=== PATIENT | female | born 1970 | race Caucasian/White ===

== ENCOUNTER 2024-08-06 02:34 | Inpatient (IN) | payer MEDICAID ==
[~2024-08-06] VITALS: Ht 172.7 cm; Wt 67.6 kg
[~2024-08-06 02:34] MED LIST: AMOX1TAB15 MT; CIPR500S3 PO; METH-819 GT
[2024-08-06 04:01] LABS: BASOPHILS % 0.8 % (0.0-2.0); DIFFERENTIAL COMMENT 0; EOSINOPHILS % 3.3 % (0.0-5.0); HEMATOCRIT. 39.3 % (36.0-48.0); HEMOGLOBIN. 13.2 g/dL (12.0-16.0); LYMPHOCYTES % 38.9 % (20.0-50.0); MEAN CORPUSCULAR HEMOGLOBIN 34.6 pg (28.0-32.0); MEAN CORPUSCULAR HGB CONC 33.7 g/dL (31.0-37.0); MEAN CORPUSCULAR VOLUME 102.7 fL (81.0-99.0); MEAN PLATELET VOLUME 7.6 fl (7.4-10.4); MONOCYTES % 9.6 % (2.0-8.0); NEUTROPHILS % 47.4 % (40.0-76.0); PLATELET 118 x1000/uL (130-400); RED BLOOD CELL COUNT 3.83 mill/uL (4.2-5.4); RED CELL DISTRIBUTION WIDTH 15.7 % (11.6-14.6); WHITE BLOOD COUNT 6.4 x1000/uL (4.5-11.0)
[2024-08-06 04:12] LABS: CHLORIDE 104 mEq/L (98-107); POTASSIUM 4.4 mEq/L (3.5-5.1); SODIUM 141 mEq/L (136-145)
[2024-08-06 04:13] LABS: CARBON DIOXIDE 33 mEq/L (21-32)
[2024-08-06 04:14] LABS: CALCIUM 8.3 mg/dL (8.7-10.4)
[2024-08-06 04:17] LABS: INR 1.2; PROTHROMBIN TIME 12.6 sec (9.6-11.0)
[2024-08-06 04:18] LABS: CREATININE 0.6 mg/dL (0.6-1.0); GLUCOSE 104 mg/dL (70-105)
[2024-08-06 04:20] LABS: LACTIC ACID 3.2 mmol/L (0.4-2.0)
[2024-08-06 04:31] LABS: UREA NITROGEN BLOOD < 5 mg/dL (9-23)
[2024-08-06 08:00] VITALS: BP 133/79; PULSE 95; RESP 18; TEMP 36.5; O2SAT 99
[2024-08-06] MEDS ORDERED: ACETAMINOPHEN 325MG TABLET PO PRN (09:30)
[2024-08-06] MEDS ORDERED: CLONIDINE 0.1MG TABLET PO PRN (09:30)
[2024-08-06] MEDS ORDERED: IPRATROPIUM/ALBUTEROL 0.5-3(2.5)MG/3ML NEB HHN PRN (09:30)
[2024-08-06] MEDS ORDERED: DOCUSATE SODIUM 100MG CAPSULE PO PRN (09:30)
[2024-08-06] MEDS ORDERED: ONDANSETRON HCL 4MG/2ML INJ IV PRN (09:30)
[2024-08-06] MEDS: HYDROCODONE/ACETAMINOPHEN 5/325MG TABLET PO PRN (09:55)
[2024-08-06 09:59] LABS: CREATINE KINASE 77 IU/L (34-145)
[2024-08-06] MEDS ORDERED: NON FORMULARY MED XX SCH (10:00)
[2024-08-06] MEDS: FAMOTIDINE 20MG/2ML VIAL IV SCH ×2 (10:21→21:28)
[2024-08-06] MEDS: PIPERACILLIN/TAZO 3.375G/50ML 50 ML IV SCH (10:21)
[2024-08-06] MEDS ORDERED: METHADONE HCL 10MG TABLET PO SCH (10:30)
[2024-08-06] MEDS ORDERED: METHADONE HCL 5MG TABLET PO SCH (10:30)
[2024-08-06] MEDS: VANCOMYCIN 1.5GM/250ML IV NR (11:57)
[2024-08-06] MEDS: METHADONE HCL 5MG TABLET PO SCH (13:40)
[2024-08-06] MEDS: METHADONE HCL 10MG TABLET PO SCH (13:41)
[2024-08-06] MEDS: HYDRALAZINE HCL 25MG TABLET PO SCH (13:48)
[2024-08-06 16:00] VITALS: BP 110/71; PULSE 89; RESP 16; TEMP 37.1; O2SAT 97
[2024-08-06 20:56] VITALS: BP 124/74; PULSE 77; RESP 18; TEMP 36.6; O2SAT 97
[2024-08-06] MEDS: VANCOMYCIN 1GM/200ML PMX (BAXTER) IV SCH (21:27)
[2024-08-07] VITALS: BP 139/77; PULSE 73; RESP 18; TEMP 36.2; O2SAT 99
[2024-08-07 04:00] VITALS: BP 151/47; PULSE 86; RESP 18; TEMP 36.2; O2SAT 97
[2024-08-07 10:15] LABS: BASOPHILS % 0.7 % (0.0-2.0); DIFFERENTIAL COMMENT 0; EOSINOPHILS % 2.4 % (0.0-5.0); HEMATOCRIT. 39.4 % (36.0-48.0); HEMOGLOBIN. 12.8 g/dL (12.0-16.0); LYMPHOCYTES % 17.9 % (20.0-50.0); MEAN CORPUSCULAR HEMOGLOBIN 33.7 pg (28.0-32.0); MEAN CORPUSCULAR HGB CONC 32.5 g/dL (31.0-37.0); MEAN CORPUSCULAR VOLUME 103.9 fL (81.0-99.0); MEAN PLATELET VOLUME 7.9 fl (7.4-10.4); MONOCYTES % 9.6 % (2.0-8.0); NEUTROPHILS % 69.4 % (40.0-76.0); PLATELET 80 x1000/uL (130-400); RED BLOOD CELL COUNT 3.79 mill/uL (4.2-5.4); RED CELL DISTRIBUTION WIDTH 16.1 % (11.6-14.6); WHITE BLOOD COUNT 4.8 x1000/uL (4.5-11.0)
[2024-08-07 10:22] LABS: CARBON DIOXIDE 27 mEq/L (21-32); CHLORIDE 105 mEq/L (98-107); SODIUM 138 mEq/L (136-145)
[2024-08-07 10:23] LABS: CALCIUM 8.4 mg/dL (8.7-10.4)
[2024-08-07 10:27] LABS: CREATININE 0.5 mg/dL (0.6-1.0); GLUCOSE 126 mg/dL (70-105); UREA NITROGEN BLOOD 7 mg/dL (9-23)
[2024-08-07 10:29] LABS: ALANINE AMINOTRANSFERASE 36 IU/L (10-49); ALBUMIN 2.5 g/dL (3.2-4.8); ASPARTATE AMINOTRANSFERASE 86 IU/L (<34)
[2024-08-07 10:30] LABS: BILIRUBIN DIRECT 1.2 mg/dL (<=3.0); BILIRUBIN TOTAL 2.8 mg/dL (0.1-1.0); PHOSPHORUS 3.3 mg/dL (2.5-4.9); PROTEIN TOTAL 6.7 g/dL (6.0-8.3)
[2024-08-07] MEDS: AMLODIPINE 5MG TABLET PO SCH (10:44)
[2024-08-07 11:29] LABS: INR 1.8; PROTHROMBIN TIME 18.6 sec (9.6-11.0)
[2024-08-07 12:00] VITALS: BP 126/78; PULSE 92; RESP 18; TEMP 36.7; O2SAT 97
[2024-08-07 16:00] VITALS: BP 130/57; PULSE 92; RESP 18; TEMP 37.1; O2SAT 98
[2024-08-07] MEDS: MORPHINE SULFATE 2 MG/ML INJ (NOT FOR IM USE) IV PRN (17:07)
[2024-08-07 20:00] VITALS: BP 131/72; PULSE 82; RESP 19; TEMP 36.6; O2SAT 97
[2024-08-08] VITALS: BP 118/66; PULSE 92; RESP 18; TEMP 36.5; O2SAT 99
[2024-08-08 07:34] LABS: CARBON DIOXIDE 30 mEq/L (21-32); CHLORIDE 107 mEq/L (98-107); POTASSIUM 4.2 mEq/L (3.5-5.1); SODIUM 141 mEq/L (136-145)
[2024-08-08 07:35] LABS: CALCIUM 8.2 mg/dL (8.7-10.4)
[2024-08-08 07:40] LABS: CREATININE 0.5 mg/dL (0.6-1.0); GLUCOSE 90 mg/dL (70-105); UREA NITROGEN BLOOD 8 mg/dL (9-23)
[2024-08-08 08:00] VITALS: BP 106/65; PULSE 89; RESP 20; TEMP 36.7; O2SAT 96
[2024-08-08 12:00] VITALS: BP 119/70; PULSE 93; RESP 18; TEMP 36.8; O2SAT 96
[2024-08-08 16:00] VITALS: BP 153/98; PULSE 72; RESP 19; TEMP 36.4; O2SAT 98
[2024-08-08 16:25] VITALS: BP 122/70; PULSE 62; RESP 19; TEMP 36.1
[2024-08-08] MEDS: VANCOMYCIN 750MG PREMIX 150 ML IV SCH (17:28)
[2024-08-08 20:00] VITALS: BP 114/72; PULSE 95; RESP 18; TEMP 36.7; O2SAT 99
[2024-08-09] VITALS: BP 107/68; PULSE 96; RESP 19; TEMP 36.4; O2SAT 96
[2024-08-09 04:00] VITALS: BP 108/68; PULSE 84; RESP 16; TEMP 36.3; O2SAT 97
[2024-08-09 06:59] LABS: DIFFERENTIAL COMMENT 0; EOSINOPHILS % 4.3 % (0.0-5.0); HEMATOCRIT. 37.6 % (36.0-48.0); HEMOGLOBIN. 12.7 g/dL (12.0-16.0); MEAN CORPUSCULAR HEMOGLOBIN 35.2 pg (28.0-32.0); MEAN CORPUSCULAR HGB CONC 33.7 g/dL (31.0-37.0); MEAN CORPUSCULAR VOLUME 104.2 fL (81.0-99.0); MEAN PLATELET VOLUME 8.2 fl (7.4-10.4); NEUTROPHILS % 55.7 % (40.0-76.0); PLATELET 84 x1000/uL (130-400); RED CELL DISTRIBUTION WIDTH 15.6 % (11.6-14.6); WHITE BLOOD COUNT 4.9 x1000/uL (4.5-11.0)
[2024-08-09 07:06] LABS: CHLORIDE 107 mEq/L (98-107); POTASSIUM 3.8 mEq/L (3.5-5.1); SODIUM 141 mEq/L (136-145)
[2024-08-09 07:09] LABS: CARBON DIOXIDE 29 mEq/L (21-32); INR 1.2; PROTHROMBIN TIME 12.4 sec (9.6-11.0)
[2024-08-09 07:10] LABS: CALCIUM 8.5 mg/dL (8.7-10.4)
[2024-08-09 07:15] LABS: CREATININE 0.5 mg/dL (0.6-1.0); GLUCOSE 107 mg/dL (70-105); UREA NITROGEN BLOOD 10 mg/dL (9-23)
[2024-08-09 07:16] LABS: ALBUMIN 2.6 g/dL (3.2-4.8)
[2024-08-09 07:17] LABS: ALANINE AMINOTRANSFERASE 40 IU/L (10-49); ASPARTATE AMINOTRANSFERASE 88 IU/L (<34); BILIRUBIN DIRECT 0.9 mg/dL (<=3.0); BILIRUBIN TOTAL 1.7 mg/dL (0.1-1.0); PHOSPHORUS 3.7 mg/dL (2.5-4.9); PROTEIN TOTAL 6.5 g/dL (6.0-8.3)
[2024-08-09 08:00] VITALS: BP 122/72; PULSE 91; RESP 20; TEMP 37.3; O2SAT 97
[2024-08-09 12:00] VITALS: BP 119/68; PULSE 96; RESP 16; TEMP 36.9; O2SAT 98
[2024-08-09 13:31] LABS: *AMPHETAMINES SCREEN URINE NEGATIVE (NEGATIVE); *BARBITURATES SCREEN URINE NEGATIVE (NEGATIVE); *BENZODIAZEPINES SCREEN URINE NEGATIVE (NEGATIVE); *COCAINE SCREEN URINE NEGATIVE (NEGATIVE)
[2024-08-09 13:32] LABS: CANNABINOID URINE SCREEN NEGATIVE (NEGATIVE); ECSTASY MDMA SCREEN URINE NEGATIVE (NEGATIVE); METHADONE URINE SCREEN Pos (NEGATIVE); OPIATES URINE SCREEN PRESUMPTIVE POSITIVE (NEGATIVE); PHENCYCLIDINE URINE SCREEN NEGATIVE (NEGATIVE)
[2024-08-09 16:00] VITALS: BP 106/60; PULSE 89; RESP 20; TEMP 36.9; O2SAT 98
[2024-08-09 20:00] VITALS: BP 115/75; PULSE 89; RESP 16; TEMP 36.6
[2024-08-10] VITALS: BP 120/70; RESP 16; TEMP 36.6
[2024-08-10 04:00] VITALS: BP 128/59; PULSE 100; RESP 18; TEMP 36.6
[2024-08-10] MEDS: ACETAMINOPHEN 325MG TABLET PO PRN (05:50)
[2024-08-10 08:00] VITALS: BP 118/65; PULSE 104; RESP 22; TEMP 36.7; O2SAT 95
[2024-08-10] MEDS ORDERED: NALOXONE HCL 0.4MG/ML VIAL IV PRN (10:30)
[2024-08-10 12:00] VITALS: BP 118/74; PULSE 102; RESP 20; TEMP 36.7; O2SAT 98
[2024-08-10] MEDS ORDERED: MORPHINE SULFATE 2 MG/ML INJ (NOT FOR IM USE) IV PRN (13:00)
[2024-08-10] MEDS: AMPICILLIN SOD/SULBACTAM NA 3 G in SODIUM CHLORIDE 0.9% 100 ML IV SCH (13:16)
[2024-08-10 16:00] VITALS: BP 111/59; PULSE 100; RESP 20; TEMP 36.8; O2SAT 97
[2024-08-10 20:00] VITALS: BP 121/70; PULSE 80; RESP 17; TEMP 36.6; O2SAT 100
[2024-08-11 04:00] VITALS: BP 110/67; RESP 15; TEMP 36.7; O2SAT 100
[2024-08-11 07:05] LABS: CALCIUM 8.4 mg/dL (8.7-10.4); CHLORIDE 104 mEq/L (98-107); POTASSIUM 4.1 mEq/L (3.5-5.1); SODIUM 139 mEq/L (136-145)
[2024-08-11 07:06] LABS: CARBON DIOXIDE 29 mEq/L (21-32)
[2024-08-11 07:11] LABS: CREATININE 0.6 mg/dL (0.6-1.0); GLUCOSE 79 mg/dL (70-105); UREA NITROGEN BLOOD 11 mg/dL (9-23)
[2024-08-11 07:49] LABS: DIFFERENTIAL COMMENT 0; EOSINOPHILS % 3.8 % (0.0-5.0); HEMATOCRIT. 35.9 % (36.0-48.0); LYMPHOCYTES % 31.8 % (20.0-50.0); MEAN CORPUSCULAR HEMOGLOBIN 34.2 pg (28.0-32.0); MEAN CORPUSCULAR HGB CONC 33.4 g/dL (31.0-37.0); MEAN CORPUSCULAR VOLUME 102.4 fL (81.0-99.0); MEAN PLATELET VOLUME 8.8 fl (7.4-10.4); MONOCYTES % 13.5 % (2.0-8.0); NEUTROPHILS % 49.9 % (40.0-76.0); PLATELET 86 x1000/uL (130-400); RED BLOOD CELL COUNT 3.51 mill/uL (4.2-5.4); RED CELL DISTRIBUTION WIDTH 15.3 % (11.6-14.6); WHITE BLOOD COUNT 4.7 x1000/uL (4.5-11.0)
[2024-08-11 08:00] VITALS: BP 107/60; PULSE 94; RESP 19; TEMP 36.8; O2SAT 97
[2024-08-11] MEDS ORDERED: AMOX1TAB16 MT (09:46)
[2024-08-11] MEDS ORDERED: SULF1TAB48 MT (09:46)
[2024-08-11 11:08] VITALS: BP 107/60; PULSE 94; TEMP 98.2; O2SAT 97
[2024-08-11 12:00] VITALS: BP 131/72; PULSE 97; RESP 19; TEMP 36.8; O2SAT 100
[2024-08-11 16:00] VITALS: BP 107/64; PULSE 89; RESP 16; TEMP 36.9; O2SAT 98
[2024-08-11 17:53] VITALS: BP 107/64; PULSE 89; RESP 16
== END 2024-08-11 21:10 | disposition home health service (06) | DRG 383 ==
LOC: ER 02:34 → 7EST 05:38 → EDBEDREQTM 05:54 → EDBEDREQ 05:54
PROVIDERS: ADMIT Internal Medicine; ATTEND Internal Medicine
DX: L03.116 Cellulitis of left lower limb (principal); E87.20 Acidosis, unspecified; D69.6 Thrombocytopenia, unspecified; S81.802A Unspecified open wound, left lower leg, initial encounter; L97.822 Non-pressure chronic ulcer of other part of left lower leg with fat layer exposed; I73.9 Peripheral vascular disease, unspecified; F17.210 Nicotine dependence, cigarettes, uncomplicated; R26.9 Unspecified abnormalities of gait and mobility; Y33.XXXA Other specified events, undetermined intent, initial encounter; Y93.89 Activity, other specified; Y92.89 Other specified places as the place of occurrence of the external cause; Y99.8 Other external cause status
CPT/HCPCS: 36415; 73590; 73700; 80048; 80076; 80202; 80305; 82550; 83605; 83735; 84100; 84145; 85025; 87070; 87077; 87186; 93005; 93923; 93970; 99285; A4606; J0295; J2270; J2543; J3370; J3490; J7050

== ENCOUNTER 2025-03-30 09:18 | Inpatient (IN) | payer MEDICAID ==
[~2025-03-30] VITALS: Ht 165.1 cm; Wt 83.7 kg
[2025-03-30] VITALS (41 sets, daily range): BP systolic 61–149; BP diastolic 26–95; PULSE 111–143; RESP 20–42; TEMP 36.50292–37.3076; O2SAT 99–100
[~2025-03-30 09:18] MED LIST changes: -AMOX1TAB15 MT; +AMOX1TAB16 MT; -CIPR500S3 PO; +SULF1TAB48 MT
[2025-03-30 10:25] LABS: BASOPHILS % 0.6 % (0.0-2.0); EOSINOPHILS % 0.1 % (0.0-5.0); HEMATOCRIT. 22.7 % (36.0-48.0); LYMPHOCYTES % 20.9 % (20.0-50.0); MEAN PLATELET VOLUME 8.1 fl (7.4-10.4); MONOCYTES % 6.7 % (2.0-8.0); NEUTROPHILS % 71.7 % (40.0-76.0); PLATELET 204 x1000/uL (130-400); RED BLOOD CELL COUNT 2.34 mill/uL (4.2-5.4); RED CELL DISTRIBUTION WIDTH 18.2 % (11.6-14.6)
[2025-03-30] MEDS: SODIUM CHLORIDE 0.9% (SEPSIS BOLUS) IV ONE (10:27)
[2025-03-30] MEDS: PIPERACILLIN/TAZO 3.375G/50ML 50 ML IV ONE (10:27)
[2025-03-30] MEDS: NOREPINEPHRINE 8MG/250ML PMX 250 ML IV SCH (10:30)
[2025-03-30] MEDS: TRANEXAMIC ACID 1000MG PREMIX 100 ML IV ONE (10:30)
[2025-03-30] MEDS: VASOPRESSIN 20 UNIT in SODIUM CHLORIDE 0.9% 99 ML IV SCH (10:30)
[2025-03-30] MEDS ORDERED: PANTOPRAZOLE 80 MG in SODIUM CHLORIDE 0.9% 100 ML IV ONE (10:30)
[2025-03-30 10:31] LABS: HEMOGLOBIN. 6.5 g/dL (12.0-16.0)
[2025-03-30] MEDS: OCTREOTIDE ACETATE 50 MCG/ML 1ML IV ONE (10:50)
[2025-03-30] MEDS: PANTOPRAZOLE 80 MG in SODIUM CHLORIDE 0.9% 100 ML IV SCH ×2 (10:50→11:01)
[2025-03-30] MEDS: OCTREOTIDE 1,000 MCG in SODIUM CHLORIDE 0.9% 98 ML IV SCH (10:50)
[2025-03-30 10:53] LABS: INR 1.8
[2025-03-30 10:58] LABS: UREA NITROGEN BLOOD 33 mg/dL (9-23)
[2025-03-30 10:59] LABS: ASPARTATE AMINOTRANSFERASE 69 IU/L (<34)
[2025-03-30 11:00] LABS: BILIRUBIN DIRECT 0.5 mg/dL (<=3.0); BILIRUBIN TOTAL 0.9 mg/dL (0.1-1.0); PROTEIN TOTAL 5.5 g/dL (6.0-8.3)
[2025-03-30 11:03] LABS: CREATININE 1.7 mg/dL (0.6-1.0)
[2025-03-30] MEDS ORDERED: MIDAZOLAM HCL 2 MG/2 ML VIAL IV NR (11:12)
[2025-03-30] MEDS ORDERED: MIDAZOLAM 100MG/100ML PMX 100 ML IV PRN (11:15)
[2025-03-30 11:19] LABS: TROPONIN I HIGH SENSITIVITY 199 ng/L (3.0-34)
[2025-03-30] MEDS: MIDAZOLAM 100MG/100ML PMX 100 ML IV PRN (11:22)
[2025-03-30 11:26] LABS: BG BASE EXCESS -24.3 mmol/L (-2.0-3.0); BG CARBOXYHEMOGLOBIN 2.1 % (0.5-1.5); BG DEOXYHEMOGLOBIN 0.3 % (0.0-5.0); BG FRACTION INSPIRED OXYGEN 100; BG HCO3 ACT 6.0 mmol/L (21.0-28.0); BG METHEMOGLOBIN 0.5 % (0.5-1.5); BG OXYGEN SATURATION 99.7 % (94.0-98.0); BG OXYHEMOGLOBIN 97.1 % (94.0-98.0); BG PCO2 31.4 mmHg (32.0-45.0); BG PEEP (cmH2O) 5.0 cmH2O; BG PH 6.896 (7.350-7.450); BG PO2 584.1 mmHg (83.0-108.0); BG SAMPLE SITE RIGHT BRACHIAL; BG TIDAL VOLUME(mL) 500.0 mL; BG TOTAL HEMOGLOBIN 4.5 g/dL (12.0-16.0); BG VENT MODE VENT - AC; BG VENT RATE 30.0 set
[2025-03-30] MEDS: MIDAZOLAM HCL 2 MG/2 ML VIAL ONE (11:26)
[2025-03-30] MEDS: SODIUM BICARBONATE 8.4% 50MEQ/50ML SYR IV SCH ×2 (11:31→12:44)
[2025-03-30] MEDS: VANCOMYCIN 1G PREMIX 200 ML IV ONE (11:43)
[2025-03-30] MEDS: SODIUM BICARBONATE 150 MEQ in SODIUM CHLORIDE 0.45% 850 ML IV ONE (12:23)
[2025-03-30] MEDS ORDERED: MORPHINE SULFATE 2 MG/ML INJ (NOT FOR IM USE) IV PRN (13:15)
[2025-03-30] MEDS ORDERED: NALOXONE HCL 0.4MG/ML VIAL IV PRN (13:15)
[2025-03-30] MEDS ORDERED: ONDANSETRON HCL 4MG/2ML INJ IV PRN (13:15)
[2025-03-30] MEDS ORDERED: HYDROCODONE/ACETAMINOPHEN 5/325MG TABLET PO PRN (13:15)
[2025-03-30] MEDS ORDERED: ZOLPIDEM TARTRATE 5MG TABLET PO PRN (13:15)
[2025-03-30] MEDS ORDERED: ACETAMINOPHEN 325MG TABLET PO PRN (13:15)
[2025-03-30] MEDS ORDERED: MAGNESIUM/ALUMINUM HYDROXIDE/SIMETHICONE 30ML UDC PO PRN (13:15)
[2025-03-30] MEDS: SODIUM CHLORIDE 0.9% 1,000 ML IV SCH (13:17)
[2025-03-30] MEDS: SUCRALFATE 1G TABLET NG SCH (14:45)
[2025-03-30] MEDS: PHYTONADIONE 10 MG in DEXTROSE 5% WATER 50 ML IV SCH (15:00)
[2025-03-30 15:26] LABS: BG BASE EXCESS -17.4 mmol/L (-2.0-3.0); BG CARBOXYHEMOGLOBIN 0.8 % (0.5-1.5); BG DEOXYHEMOGLOBIN 0.5 % (0.0-5.0); BG FRACTION INSPIRED OXYGEN 50; BG HCO3 ACT 9.7 mmol/L (21.0-28.0); BG METHEMOGLOBIN 0.3 % (0.5-1.5); BG OXYGEN SATURATION 99.5 % (94.0-98.0); BG OXYHEMOGLOBIN 98.4 % (94.0-98.0); BG PCO2 27.3 mmHg (32.0-45.0); BG PEEP (cmH2O) 5.0 cmH2O; BG PH 7.168 (7.350-7.450); BG PO2 275.4 mmHg (83.0-108.0); BG SAMPLE SITE RIGHT RADIAL; BG TIDAL VOLUME(mL) 500.0 mL; BG TOTAL HEMOGLOBIN 10.8 g/dL (12.0-16.0); BG VENT MODE VENT - AC; BG VENT RATE 30.0 set
[2025-03-30] MEDS: SODIUM BICARBONATE 8.4% 50MEQ/50ML SYR IV NR (15:58)
[2025-03-30 17:29] LABS: BASOPHILS % 0.3 % (0.0-2.0); EOSINOPHILS % 0.0 % (0.0-5.0); HEMATOCRIT. 33.6 % (36.0-48.0); LYMPHOCYTES % 6.5 % (20.0-50.0); MEAN PLATELET VOLUME 8.1 fl (7.4-10.4); MONOCYTES % 8.4 % (2.0-8.0); NEUTROPHILS % 84.8 % (40.0-76.0); PLATELET 99 x1000/uL (130-400); RED BLOOD CELL COUNT 3.77 mill/uL (4.2-5.4); RED CELL DISTRIBUTION WIDTH 15.8 % (11.6-14.6)
[2025-03-30 17:44] LABS: HEMOGLOBIN. 11.1 g/dL (12.0-16.0)
[2025-03-30] MEDS ORDERED: IPRATROPIUM/ALBUTEROL 0.5-3(2.5)MG/3ML NEB HHN PRN (17:45)
[2025-03-30 18:02] LABS: CREATININE 1.8 mg/dL (0.6-1.0); UREA NITROGEN BLOOD 40.0 mg/dL (9-23)
[2025-03-30 18:23] LABS: TROPONIN I HIGH SENSITIVITY 1734 ng/L (3.0-34)
[2025-03-30] MEDS: PANTOPRAZOLE SODIUM 40 MG/VIAL IV SCH (21:12)
[2025-03-30] MEDS: PHENYLEPHRINE 50MG/250ML PMX 250 ML IV PRN (22:00)
[2025-03-30] MEDS: PIPERACILLIN/TAZO 3.375G/50ML 50 ML IV SCH (22:09)
[2025-03-30 22:17] LABS: BG BASE EXCESS -22.1 mmol/L (-2.0-3.0); BG CARBOXYHEMOGLOBIN 0.8 % (0.5-1.5); BG DEOXYHEMOGLOBIN 0.6 % (0.0-5.0); BG FRACTION INSPIRED OXYGEN 50; BG HCO3 ACT 5.6 mmol/L (21.0-28.0); BG METHEMOGLOBIN 0.1 % (0.5-1.5); BG OXYGEN SATURATION 99.4 % (94.0-98.0); BG OXYHEMOGLOBIN 98.5 % (94.0-98.0); BG PCO2 18.3 mmHg (32.0-45.0); BG PEEP (cmH2O) 5.0 cmH2O; BG PH 7.102 (7.350-7.450); BG PO2 244.3 mmHg (83.0-108.0); BG SAMPLE SITE RIGHT RADIAL; BG TIDAL VOLUME(mL) 500.0 mL; BG TOTAL HEMOGLOBIN 13.4 g/dL (12.0-16.0); BG VENT MODE VENT - AC; BG VENT RATE 30.0 set
[2025-03-30 22:27] LABS: CREATININE 1.9 mg/dL (0.6-1.0); UREA NITROGEN BLOOD 29 mg/dL (9-23)
[2025-03-30 23:04] LABS: TROPONIN I HIGH SENSITIVITY 4053 ng/L (3.0-34)
[2025-03-30] MEDS ORDERED: SODIUM BICARBONATE 100 MEQ in SODIUM CHLORIDE 0.45% 900 ML IV SCH (23:30)
[2025-03-31] VITALS (97 sets, daily range): BP systolic 56–162; BP diastolic 10–118; PULSE 0–136; RESP 0–42; TEMP 35.5584–36.7; O2SAT 51–100
[2025-03-31] MEDS: DEXTROSE 50% WATER 50ML SYRINGE IV NR (00:03)
[2025-03-31] MEDS: DEXT 10% WATER 1,000 ML IV SCH (00:06)
[2025-03-31] MEDS: VASOPRESSIN 20 UNIT in SODIUM CHLORIDE 0.9% 99 ML IV PRN ×2 (00:13→10:06)
[2025-03-31] MEDS: SODIUM BICARBONATE 100 MEQ in DEXTROSE 5% WATER 900 ML IV SCH (00:49)
[2025-03-31] MEDS: NOREPINEPHRINE 8MG/250ML PMX 250 ML IV PRN (00:50)
[2025-03-31 01:09] LABS: CLARITY URINE CLEAR (CLEAR); COLOR URINE DARK YELLOW (YELLOW); GLUCOSE URINE NEGATIVE (NEGATIVE); KETONES URINE NEGATIVE (NEGATIVE); LEUKOCYTE ESTERASE URINE TRACE (NEGATIVE); NITRITE URINE NEGATIVE (NEGATIVE); OCCULT BLOOD URINE NEGATIVE (NEGATIVE); PH URINE 5.5 (4.5-8.0); PROTEIN URINE NEGATIVE (NEGATIVE); SPECIFIC GRAVITY URINE 1.021 (1.005-1.030); UROBILINOGEN URINE 0.2 E.U./dL (0.2-1.0)
[2025-03-31 01:43] LABS: BACTERIA URINE TRACE; RBC URINE 0-2 /hpf (0-2); SQUAMOUS EPITHELIAL CELL URINE FEW /lpf (RARE/1+)
[2025-03-31 05:08] LABS: *AMPHETAMINES SCREEN URINE NEGATIVE (NEGATIVE); *BARBITURATES SCREEN URINE NEGATIVE (NEGATIVE); *BENZODIAZEPINES SCREEN URINE NEGATIVE (NEGATIVE); *COCAINE SCREEN URINE NEGATIVE (NEGATIVE); CANNABINOID URINE SCREEN NEGATIVE (NEGATIVE); ECSTASY MDMA SCREEN URINE CONF.TEST INDICATED (NEGATIVE); METHADONE URINE SCREEN NEGATIVE (NEGATIVE); OPIATES URINE SCREEN NEGATIVE (NEGATIVE); PHENCYCLIDINE URINE SCREEN NEGATIVE (NEGATIVE)
[2025-03-31 06:31] LABS: UREA NITROGEN BLOOD 38 mg/dL (9-23)
[2025-03-31 06:33] LABS: BILIRUBIN TOTAL 1.4 mg/dL (0.1-1.0)
[2025-03-31 06:34] LABS: FOLIC ACID (FOLATE) SERUM > 20.00 ng/mL (>5.38)
[2025-03-31 06:36] LABS: VITAMIN B12 SERUM 1194 pg/mL (211-911)
[2025-03-31 06:43] LABS: BG BASE EXCESS -25.9 mmol/L (-2.0-3.0); BG CARBOXYHEMOGLOBIN 2.2 % (0.5-1.5); BG DEOXYHEMOGLOBIN 0.2 % (0.0-5.0); BG FRACTION INSPIRED OXYGEN 90; BG HCO3 ACT 3.7 mmol/L (21.0-28.0); BG METHEMOGLOBIN 0.3 % (0.5-1.5); BG OXYGEN SATURATION 99.8 % (94.0-98.0); BG OXYHEMOGLOBIN 97.3 % (94.0-98.0); BG PCO2 18.0 mmHg (32.0-45.0); BG PEEP (cmH2O) 5.0 cmH2O; BG PH 6.933 (7.350-7.450); BG PO2 389.8 mmHg (83.0-108.0); BG SAMPLE SITE ALINE; BG TIDAL VOLUME(mL) 500.0 mL; BG TOTAL HEMOGLOBIN 4.5 g/dL (12.0-16.0); BG VENT MODE VENT - AC; BG VENT RATE 30.0 set
[2025-03-31 06:44] LABS: ASPARTATE AMINOTRANSFERASE 2022 IU/L (<34)
[2025-03-31] MEDS ORDERED: SODIUM BICARBONATE 8.4% 50MEQ/50ML SYR IV PRN (06:55)
[2025-03-31] MEDS: SODIUM BICARBONATE 8.4% 50MEQ/50ML SYR IV SCH (07:00)
[2025-03-31 07:07] LABS: HEPATITIS A AB IGM NEGATIVE (Negative); HEPATITIS B CORE AB IGM NEGATIVE (Negative)
[2025-03-31 07:12] LABS: INR 3.1
[2025-03-31 09:00] LABS: CREATININE 2.8 mg/dL (0.6-1.0); PROTEIN TOTAL 3.5 g/dL (6.0-8.3)
[2025-03-31 09:02] LABS: TROPONIN I HIGH SENSITIVITY 8327 ng/L (3.0-34)
[2025-03-31] MEDS: EPINEPHRINE 10 MG in SODIUM CHLORIDE 0.9% 240 ML IV PRN (09:14)
[2025-03-31] MEDS: NOREPINEPHRINE 32 MG in DEXT 5% WATER 218 ML IV PRN (10:05)
[2025-03-31] MEDS: PHENYLEPHRINE 100 MG in DEXT 5% WATER 240 ML IV PRN (10:06)
[2025-03-31 10:51] LABS: BASOPHILS % 0.2 % (0.0-2.0); EOSINOPHILS % 5.6 % (0.0-5.0); LYMPHOCYTES % 13.5 % (20.0-50.0); MONOCYTES % 4.7 % (2.0-8.0); NEUTROPHILS % 76.0 % (40.0-76.0); RED BLOOD CELL COUNT 1.19 mill/uL (4.2-5.4); RED CELL DISTRIBUTION WIDTH 17.1 % (11.6-14.6)
[2025-03-31 11:10] LABS: HEMOGLOBIN. 3.5 g/dL (12.0-16.0)
[2025-03-31 11:11] LABS: HEMATOCRIT. 11.6 % (36.0-48.0)
[2025-03-31 11:33] LABS: HEPATITIS C AB REACTIVE (Pos) (Negative)
[2025-03-31] MEDS: HYDROCORTISONE SOD SUCCINATE 100 MG/2 ML VIAL IV SCH (13:30)
[2025-03-31] MEDS: EPINEPHRINE 20 MG in SODIUM CHLORIDE 0.9% 480 ML IV PRN (13:38)
[2025-03-31] MEDS: LACTULOSE 20G/30ML UDC NG SCH (15:00)
[2025-03-31] MEDS: BLOOD SUGAR DIAGNOSTIC STRIP TEST SCH (16:00)
[2025-03-31] MEDS: PHYTONADIONE 10 MG in DEXTROSE 5% WATER 50 ML IV SCH (17:23)
[2025-03-31] MEDS: OCTREOTIDE 1,000 MCG in SODIUM CHLORIDE 0.9% 98 ML IV SCH (17:24)
[2025-03-31] MEDS: VANCOMYCIN 750MG PREMIX 150 ML IV NR (17:24)
[2025-03-31] MEDS ORDERED: MIDAZOLAM HCL 2 MG/2 ML VIAL IV PRN (20:30)
[2025-03-31] MEDS: MORPHINE SULFATE 4 MG/ML INJ (FOR IV/IM USE) IV PRN (20:52)
[2025-03-31] MEDS ORDERED: RIFAXIMIN 550 MG TABLET NG SCH (21:00)
== END 2025-04-01 00:04 | DRG 253 ==
LOC: ER 09:18 → MICUSO 12:47 → EDBEDREQ 12:49 → EDBEDREQTM 12:49 → ENRESERV 13:33
PROVIDERS: ADMIT Internal Medicine; ATTEND Internal Medicine
PROC: 30233N1 Transfusion of Nonautologous Red Blood Cells into Peripheral Vein, Percutaneous Approach (ICD-10-PCS; principal; 2025-03-30)
PROC: 5A1945Z Respiratory Ventilation, 24-96 Consecutive Hours (ICD-10-PCS; 2025-03-30)
PROC: 30233K1 Transfusion of Nonautologous Frozen Plasma into Peripheral Vein, Percutaneous Approach (ICD-10-PCS; 2025-03-30)
PROC: 0BH17EZ Insertion of Endotracheal Airway into Trachea, Via Natural or Artificial Opening (ICD-10-PCS; 2025-03-30)
PROC: 02HV33Z Insertion of Infusion Device into Superior Vena Cava, Percutaneous Approach (ICD-10-PCS; 2025-03-30)
PROC: B548ZZA Ultrasonography of Superior Vena Cava, Guidance (ICD-10-PCS; 2025-03-30)
PROC: 04HY32Z Insertion of Monitoring Device into Lower Artery, Percutaneous Approach (ICD-10-PCS; 2025-03-31)
PROC: 5A12012 Performance of Cardiac Output, Single, Manual (ICD-10-PCS; 2025-03-31)
DX: K92.0 Hematemesis (principal); J96.01 Acute respiratory failure with hypoxia; R57.8 Other shock; N17.0 Acute kidney failure with tubular necrosis; G93.41 Metabolic encephalopathy; I21.4 Non-ST elevation (NSTEMI) myocardial infarction; R78.81 Bacteremia; D62 Acute posthemorrhagic anemia; E87.20 Acidosis, unspecified; K76.6 Portal hypertension; R16.1 Splenomegaly, not elsewhere classified; D68.9 Coagulation defect, unspecified; I50.9 Heart failure, unspecified; F10.10 Alcohol abuse, uncomplicated; K92.1 Melena; D69.6 Thrombocytopenia, unspecified; I73.9 Peripheral vascular disease, unspecified; K70.30 Alcoholic cirrhosis of liver without ascites; Z66 Do not resuscitate; Z51.5 Encounter for palliative care; E86.1 Hypovolemia
CPT/HCPCS: 31500; 31720; 36415; 36600; 71045; 80048; 80053; 80076; 80305; 80320; 81003; 82105; 82140; 82375; 82533; 82607; 82728; 82746; 82805; 82962; 83540; 83550; 83605; 83735; 83880; 84145; 84443; 84484; 85014; 85018; 85025; 85044; 85379; 85384; 86705; 86709; 86850; 86900; 86920; 86927; 87077; 87186; 87340; 93005; 93306; 93970; 94002; 94003; 94070; 94664; 98960; A4606; J1720; J2250; J2270; J2354; J2371; J2470; J2543; J3373; J3430; J3490; J7030; J7040; J7050; J7060; J7070; P9016; P9017; G0480